=== PATIENT | male | born 1970 | race Caucasian/White ===

== ENCOUNTER 2017-03-27 20:59 | Emergency (ER) | payer BC ==
[~2017-03-27] VITALS: Ht 185.4 cm; Wt 81.8 kg
[~2017-03-27 20:59] MED LIST: MULTIPLE VITAMI1 CAP PO; ZOLOFT25 MG PO
[2017-03-27 21:05] VITALS: BP 178/93; TEMP 99.9
[2017-03-27 22:17] VITALS: PULSE 78
== END 2017-03-27 22:17 | disposition home or self-care (01) ==
LOC: COL.ER 20:59
DX: S52.501A Unspecified fracture of the lower end of right radius, initial encounter for closed fracture (principal); V00.211A Fall from ice-skates, initial encounter; Y93.21 Activity, ice skating

== ENCOUNTER 2019-10-08 07:28 | Day surgery (SDC) | payer BC ==
[~2019-10-08] VITALS: Ht 185.4 cm; Wt 83.5 kg
[2019-10-08 07:51] VITALS: BP 133/100; PULSE 70; TEMP 98
[2019-10-08 09:25] VITALS: BP 115/85; PULSE 72; TEMP 97.7
--- NOTE | 2019-10-08 09:25 | NUR ---
Patient brought back to [facility] via cart ambulated to chair without difficulty. Patient is alert and oriented. Denies pain or nausea. Placed on monitors, vital signs stable. Patient requests juice and muffin with butter. Report recieved from ALVARO Schuler. Warm blanket provided, call james within reach. will be able to pick him up at 1030. Will continue to monitor.
[2019-10-08 09:40] VITALS: BP 125/90; PULSE 65
--- NOTE | 2019-10-08 09:40 | NUR ---
Patient tolerating food and drink without difficulty. States he would like some water. Will continue to monitor.
[2019-10-08 09:55] VITALS: BP 117/89; PULSE 62
[2019-10-08 10:10] VITALS: BP 127/96; PULSE 74
[2019-10-08 10:25] VITALS: BP 112/76; PULSE 72
--- NOTE | 2019-10-08 10:25 | NUR ---
Patients is on her way to [employer] [facility]. Patient is ready to be discharged. Stable. IV removed, intact. Discharge instructions reviewed with patient. Dr. Velazquez in room to review results. All questions answered. Patient to get dressed at this time.
--- NOTE | 2019-10-08 10:40 | NUR ---
Patient brought down to lobby via wheel chair. All posessions in hand. met him at front lobby door. To drive patient home.
== END 2019-10-08 10:25 | disposition home or self-care (01) ==
LOC: SDCO 07:28
DX: Z12.11 Encounter for screening for malignant neoplasm of colon (principal); K63.5 Polyp of colon; K57.30 Diverticulosis of large intestine without perforation or abscess without bleeding; E78.1 Pure hyperglyceridemia; Z20.828 Contact with and (suspected) exposure to other viral communicable diseases
CPT/HCPCS: J2704; J3010; J7030